=== PATIENT | male | born 1955 ===

== ENCOUNTER 2017-07-28 06:46 | Day surgery (SDC) | payer OTHER | END 2017-07-28 11:10 | disposition home or self-care (01) | LOC: AMB-ENDOS 06:46 | DX: D12.3 Benign neoplasm of transverse colon (principal); K62.1 Rectal polyp; Z12.11 Encounter for screening for malignant neoplasm of colon; K92.1 Melena; K57.30 Diverticulosis of large intestine without perforation or abscess without bleeding; D12.5 Benign neoplasm of sigmoid colon ==

== ENCOUNTER 2017-09-02 14:53 | Outpatient (CLI) | payer OTHER | END 2017-09-02 15:00 | disposition home or self-care (01) | LOC: LAB 14:53 | DX: R97.20 Elevated prostate specific antigen [PSA] (principal) ==

== ENCOUNTER 2017-10-17 07:28 | Outpatient (CLI) | payer OTHER | END 2017-10-17 07:46 | disposition home or self-care (01) | LOC: SONOGRAMA 07:28 | DX: R97.20 Elevated prostate specific antigen [PSA] (principal) ==

== ENCOUNTER 2020-03-16 14:29 | Outpatient (CLI) | payer OTHER | END 2020-03-16 15:00 | disposition home or self-care (01) | LOC: LAB 14:29 | PROVIDERS: ATTEND Urology | DX: R97.20 Elevated prostate specific antigen [PSA] (principal) ==

== ENCOUNTER 2020-04-14 07:42 | Outpatient (CLI) | payer OTHER | END 2020-04-14 07:56 | disposition home or self-care (01) | LOC: SONOGRAMA 07:42 | PROVIDERS: ATTEND Urology | DX: D29.1 Benign neoplasm of prostate (principal) ==

== ENCOUNTER 2023-01-10 06:15 | Day surgery (SDC) | payer OTHER | END 2023-01-10 11:15 | disposition home or self-care (01) | LOC: AMB-ENDOS 06:15 | PROVIDERS: ATTEND Surgery | DX: D12.2 Benign neoplasm of ascending colon (principal); D12.3 Benign neoplasm of transverse colon; K57.30 Diverticulosis of large intestine without perforation or abscess without bleeding; K92.1 Melena; Z20.822 Contact with and (suspected) exposure to COVID-19 ==

== ENCOUNTER 2023-07-03 16:51 | Outpatient (CLI) | payer OTHER | END 2023-07-03 17:01 | disposition home or self-care (01) | LOC: LAB 16:51 | PROVIDERS: ATTEND Urology | DX: R97.20 Elevated prostate specific antigen [PSA] (principal) ==